=== PATIENT | female | born 1985 | race Caucasian/White ===

== ENCOUNTER 2016-09-21 21:41 | Emergency (ER) | payer OTHER ==
[2016-09-21 21:56] VITALS: BP 150/72; PULSE 78; TEMP 98.2; BMI 31.4
--- NOTE | 2016-09-21 22:02 | EDPRACDOC ---
- General Information Chief Complaint: Neck Pain Stated Complaint: NECK PAIN NO INJURY Time Seen by Provider: 09/21/16 21:58 Home Medications: Home Medications Amoxicillin Trihydrate [Amoxicillin] 500 mg PO TID #30 tab 06/24/16 Ketorolac Tromethamine [Toradol] 10 mg PO Q6H PRN #12 tab 06/24/16 Cyclobenzaprine HCl [Flexeril] 10 mg PO TID PRN #20 tablet 09/21/16 Naproxen Sodium 500 mg PO BID PRN #20 tablet.sa 09/21/16 Allergies/Adverse Reactions: Allergies Allergy/AdvReac Type Severity Reaction Status Date / Time No Known Allergies Allergy Verified 06/24/16 17:53 - History of Present Illness Onset: 3 DAYS HPI: PT STATES THAT SHE HAS HAD "TIGHTNESS" IN THE LEFT SIDE OF HER NECK FOR A FEW DAYS, STATES SHE TURNED HER HEAD TO [employer] HER BAB[employer] TODAY AND FELT A "POP", STATES PAIN INCREASED SINCE, DESCRIBES PAIN THROBBING, SEVERE, WORSE WITH TURNING HER HEAD AND RAISING LEFT ARM, USING IBUPROFEN WITHOUT RELIEF. Pain Severity: Moderate Tetanus Up To Date?: Yes Circumstances: Reports: Other Associated signs and symptoms: Reports: None ED Past Medical History - History Reviewed Yes Nurses notes reviewed and agree except as marked - Patient Medical History Respiratory History: Reports: Asthma Psychological History: Denies: Depression Surgical History: Reports: Other (D&E) - Family Medical History Reports: Cardiac Disorders (mom). Denies: Hypertension, Diabetes, Cancer, Stroke - Social Medical History Smoking Status: Heavy tobacco smoker (5 or more cigarettes/day or daily pipe/ cigar) EDM Review of Systems - Review of Systems Constitutional: negative: Chills, Fever Gastrointestinal: negative: Nausea, Vomiting Neurological: negative: Dizziness, Numbness, Weakness Musculoskeletal: Neck Integumentary: No Symptoms Reported - Physical Exam Constitutional: Alert (Awake), No apparent distress Oriented to: Time, Person, Place Last recorded Vital Signs: Last Vital Signs Temp 98.2 F 09/21/16 21:54 Pulse 78 09/21/16 21:54 Resp 18 09/21/16 21:54 BP 150/72 09/21/16 21:54 Pulse Ox 98 09/21/16 21:54 Oxygen Pulse Oxygen Saturation 98 O2 Device Room Air Oxygen Flow Rate Fraction of Inspired Oxygen ( FIO2) - HEENT Head: Normal ( normocephalic) Neck: Paraspinal Tenderness (LEFT). negative: Bony Tenderness, Limited ROM, Midline - Musculoskeletal Back: Normal. negative: Thoracic TTP, Lumbar TTP - Integumentary Skin: Normal, Warm, Dry Lymphatics: Normal (no adenopathy) - Neurologic Memory Impaired: Normal Motor Function: Normal (Normal tone, Pulses 2+ No cyanosis or edema, FROM) Cranial Nerve: Normal (CN II-X11 intact sensation, strength 5/5) Cerebellar: Normal Mood Description: Normal Perception: Normal - Differential Diagnosis Cervical Muscle Spasm, Cervical Sprain/Strain Decision Time to Discharge: 22:02 - Departure Disposition: Home Condition: Stable Final Diagnosis: Cervical strain, acute Qualifiers: Encounter type: initial encounter Qualified Code(s): S16.1XXA - Strain of muscle, fascia and tendon at neck level, initial encounter Instructions: Cervical Sprain (ED) Education/Counseling Given To: Patient Education/Counseling Given Regarding: Diagnosis, Treatment, Prognosis, Follow Up Referrals: Jeromy Alvarez MD [Staff Physician] - One Week Prescriptions: Cyclobenzaprine HCl [Flexeril] 10 mg PO TID PRN #20 tablet PRN Reason: Muscle Spasms Naproxen Sodium 500 mg PO BID PRN #20 tablet.sa PRN Reason: Pain Additional Instructions: APPLY WARM COMPRESSES TO AREAS OF SORENESS 20 MINS AT A TIME 4 - 5 TIMES DAILY NEEDED FOR PAIN.
[2016-09-21] MEDS ORDERED: CYCLOBENZAPRINE 10 MG TAB PO ONE (22:03)
== END 2016-09-21 22:22 | disposition home or self-care (01) ==
LOC: EDMC 21:41
DX: S16.1XXA Strain of muscle, fascia and tendon at neck level, initial encounter (principal); X58.XXXA Exposure to other specified factors, initial encounter; F17.210 Nicotine dependence, cigarettes, uncomplicated
CPT/HCPCS: 99282; J3490